=== PATIENT | male | born 1960 | race Caucasian/White ===

== ENCOUNTER 2017-12-17 07:01 | Observation (INO) | payer OTHER ==
[2017-12-17] VITALS (8 sets, daily range): BP systolic 109–162; BP diastolic 58–75; PULSE 60–82; RESP 16–18; TEMP 97.8–98.5; O2SAT 95–99
[~2017-12-17] VITALS: Ht 180.3 cm; Wt 109.0 kg
[~2017-12-17 07:01] MED LIST: CENTCHW4 CHEW; GEMF600 PO; LISI20TA PO; METF1000 PO; PIOG30TA4 PO; VITA500T83 PO
[2017-12-17] MEDS ORDERED: SODIUM CHLORIDE 0.9% FLUSH 10 ML FLUSH IVF PRN (07:30)
[2017-12-17] MEDS ORDERED: ASPIRIN 81 MG CHEW TAB PO ONE (07:30)
--- NOTE | 2017-12-17 07:32 | PD ---
HPI Chief Complaint: Chest Pain Time Seen by Provider: 07:20 Travel History International Travel<30 days: No Contact w/Intl Traveler<30days: No Traveled to known affect area: No History of Present Illness HPI This is a 57-year-old male with a history of diabetes, hyperlipidemia and hypertension who presents to the emergency department with chest discomfort described as a pressure and heaviness on his chest radiating between the shoulder blades into his left arm, intermittent, going on for the past 3 days worse this morning. He denies any associated nausea, diaphoresis or shortness of breath. He has never had pain like this before. His last stress test was in 2012 and was normal. He has a brother who had a stent placed and is in his early 60s. He is a recovering alcoholic and prefers to avoid IV opiates. PFSH Past Medical History Blood Disorders: No Heart Rhythm Problems: No Cancer: No Cardiac Catheterization: No Cardiovascular Problems: Yes High Cholesterol: Yes Congestive Heart Failure: No Diabetes: Yes Patient Takes Glucophage: Yes Diminished Hearing: No Endocrine: Yes Genitourinary: No Hypertension: Yes Immune Disorder: No Musculoskeletal: No Neurologic: No Psychiatric: No Respiratory: No Influenza Vaccination: Yes Past Surgical History Coronary Artery Bypass Graft: No Social History Alcohol Use: No (HX OF ALCOHOLISM) Tobacco Use: Yes (1/2 ppd) Substance Use: No Allergies-Medications (Allergen,Severity, Reaction): Coded Allergies: lorazepam (Unverified Allergy, Intermediate, Edema, 12/17/17) FACIAL SWELLING Reported Meds & Prescriptions Reported Meds & Active Scripts Active Lisinopril-Hctz 20-12.5 Mg Tab 2 Tab PO DAILY Pioglitazone (Pioglitazone HCl) 30 Mg Tab 30 Mg PO DAILY Lopid (Gemfibrozil) 600 Mg Tab 600 Mg PO BIDAC Take 30 minutes prior to breakfast and dinner Metformin (Metformin HCl) 1,000 Mg Tab 1,000 Mg PO BIDPC With meals Reported Centrum (Multiple Vitamins W/ Minerals) 1 Chew 1 Tab CHEW DAILY Vitamin C ER (Ascorbic Acid) 500 Mg Leah 500 Mg PO DAILY Review of Systems Except as stated in HPI: all other systems reviewed are Neg Physical Exam Narrative GENERAL:Well appearing, no acute distress SKIN: Focused skin assessment warm and dry. HEAD: Atraumatic. Normocephalic. EYES: Pupils equal and round. No injection or drainage. ENT: Moist mucous membranes NECK: Trachea midline. CARDIOVASCULAR: Regular rate and rhythm. No murmur appreciated. RESPIRATORY: Clear to auscultation. Breath sounds equal bilaterally. GASTROINTESTINAL: Abdomen soft, non-tender, nondistended. MUSCULOSKELETAL: No obvious deformities. NEUROLOGICAL: Awake and alert. No obvious cranial nerve deficits. Moving all extremities. PSYCHIATRIC: Appropriate mood and affect; insight and judgment normal. Data Data Last Documented VS Vital Signs Date Time Temp Pulse Resp B/P (MAP) Pulse Ox O2 Delivery O2 Flow Rate FiO2 12/17/17 07:50 16 12/17/17 07:38 82 145/64 (91) 12/17/17 07:29 98 Room Air 12/17/17 07:17 97.9 Orders Orders Electrocardiogram (12/17/17 07:30) Complete Blood Count With Diff (12/17/17 07:30) Comprehensive Metabolic Panel (12/17/17 07:30) Troponin I (12/17/17 07:30) Ecg Monitoring (12/17/17 07:30) Bilateral Bp Monitoring (12/17/17 07:30) Iv Access Insert/Monitor (12/17/17 07:30) Oximetry (12/17/17 07:30) Oxygen Administration (12/17/17 07:30) Aspirin Chew (Aspirin Chew) (12/17/17 07:30) Sodium Chloride 0.9% Flush (Ns Flush) (12/17/17 07:30) Nitroglycerin Sl (Nitrostat Sl) (12/17/17 07:30) Chest, Pa & Lat (12/17/17 07:30) Acetaminophen (Tylenol) (12/17/17 08:15) Admit Order (Ed Use Only) (12/17/17 08:36) Labs Laboratory Tests Test 12/17/17 07:34 White Blood Count 5.7 TH/MM3 Red Blood Count 4.65 MIL/MM3 Hemoglobin 14.6 GM/DL Hematocrit 43.3 % Mean Corpuscular Volume 93.0 FL Mean Corpuscular Hemoglobin 31.4 PG Mean Corpuscular Hemoglobin Concent 33.7 % Red Cell Distribution Width 13.7 % Platelet Count 236 TH/MM3 Mean Platelet Volume 9.6 FL Neutrophils (%) (Auto) 61.9 % Lymphocytes (%) (Auto) 25.5 % Monocytes (%) (Auto) 8.8 % Eosinophils (%) (Auto) 3.1 % Basophils (%) (Auto) 0.7 % Neutrophils # (Auto) 3.5 TH/MM3 Lymphocytes # (Auto) 1.5 TH/MM3 Monocytes # (Auto) 0.5 TH/MM3 Eosinophils # (Auto) 0.2 TH/MM3 Basophils # (Auto) 0.0 TH/MM3 CBC Comment DIFF FINAL Differential Comment Blood Urea Nitrogen 27 MG/DL Creatinine 1.08 MG/DL Random Glucose 191 MG/DL Total Protein 7.3 GM/DL Albumin 3.4 GM/DL Calcium Level 8.9 MG/DL Alkaline Phosphatase 85 U/L Aspartate Amino Transf (AST/SGOT) 19 U/L Alanine Aminotransferase (ALT/SGPT) 22 U/L Total Bilirubin 0.4 MG/DL Sodium Level 140 MEQ/L Potassium Level 4.1 MEQ/L Chloride Level 105 MEQ/L Carbon Dioxide Level 25.7 MEQ/L Anion Gap 9 MEQ/L Estimat Glomerular Filtration Rate 71 ML/MIN Troponin I LESS THAN 0.02 NG/ML MDM Medical Decision Making Medical Screen Exam Complete: Yes Emergency Medical Condition: Yes Medical Record Reviewed: Yes (Stress test in June 2013 was reassuring) Interpretation(s) EKG: Normal sinus rhythm with no ST changes No leukocytosis Troponin is normal Last 24 hours Impressions Chest X-Ray 12/17/17 0730 Signed Impressions: Service Date/Time: Sunday, December 17, 2017 07:57 - CONCLUSION: 1. No acute cardiopulmonary disease. Austin Pelayo MD Differential Diagnosis acute coronary syndrome, pneumothorax, pneumonia, pleural effusion Narrative Course This is a 57-year-old male who presents to the emergency department with chest discomfort described as a heaviness. EKG is nonischemic. He is placed on a monitor and IV was established. Labs were obtained which were reassuring. Aspirin was administered. Chest x-ray is reassuring. Patient has clinical history concerning for acute coronary syndrome. He will be placed in observation in the chest pain center. I do not suspect aortic dissection or pulmonary embolism given his description of symptoms, well appearance and normal vital signs. Diagnosis Primary Impression: Chest pain Qualified Codes: R07.9 - Chest pain, unspecified Admitting Information Admitting Physician Requests: Marichuy Knox MD December 17, 2017 07:32
[2017-12-17] MEDS: NITROGLYCERIN 0.4 MG SL 25 TABS/BTL SL SCH ×3 (07:34→07:50)
[2017-12-17 07:47] LABS: AUTOMATED NEUTROPHIL # 3.5 TH/MM3 (1.8-7.7); BASOPHIL % 0.7 % (0.0-2.0); EOSINOPHIL # 0.2 TH/MM3 (0-0.4); EOSINOPHIL % 3.1 % (0.0-4.0); HEMATOCRIT 43.3 % (39.0-51.0); HEMOGLOBIN 14.6 GM/DL (13.0-17.0); LYMPH % 25.5 % (9.0-44.0); LYMPHOCYTE # 1.5 TH/MM3 (1.0-4.8); MEAN CORPUSCULAR HEMOGLOBIN 31.4 PG (27.0-34.0); MEAN CORPUSCULAR HGB CONC 33.7 % (32.0-36.0); MEAN PLATELET VOLUME 9.6 FL (7.0-11.0); MONO % 8.8 % (0.0-8.0); MONOCYTE # 0.5 TH/MM3 (0-0.9); NEUT % 61.9 % (16.0-70.0); PLATELET COUNT 236 TH/MM3 (150-450); RED BLOOD COUNT 4.65 MIL/MM3 (4.50-5.90); RED CELL DISTRIBUTION WIDTH 13.7 % (11.6-17.2); WHITE BLOOD COUNT 5.7 TH/MM3 (4.0-11.0)
--- NOTE | 2017-12-17 08:12 | RADRPT ---
EXAM DATE/TIME: 12/17/2017 07:57 [facility] COMPARISON: No previous studies available for comparison. INDICATIONS : Patient states chest pressure. MEDICAL HISTORY : Diabetes mellitus type II. Hypertension SURGICAL HISTORY : None. ENCOUNTER: Initial ACUITY: 2 days PAIN SCORE: 5/10 LOCATION: Bilateral chest FINDINGS: PA and lateral views of the chest demonstrate the lungs to be symmetrically aerated without evidence of mass, infiltrate or effusion. The cardiomediastinal contours are unremarkable. Osseous structure s are intact. CONCLUSION: 1. No acute cardiopulmonary disease. Austin Pelayo MD on December 17, 2017 at 8:10 Board Certified Radiologist. This report was verified electronically.
[2017-12-17 08:14] LABS: ALBUMIN 3.4 GM/DL (3.4-5.0); ALKALINE PHOSPHATASE 85 U/L (45-117); ALT (GPT) 22 U/L (12-78); AST (GOT) 19 U/L (15-37); BICARBONATE 25.7 MEQ/L (21.0-32.0); BLOOD UREA NITROGEN 27 MG/DL (7-18); CALCIUM 8.9 MG/DL (8.5-10.1); CHLORIDE 105 MEQ/L (98-107); CREATININE 1.08 MG/DL (0.60-1.30); GLOMERULAR FILTRATION RATE 71 ML/MIN (>89); GLUCOSE,RANDOM 191 MG/DL (74-106); SODIUM (NA) 140 MEQ/L (136-145); TOTAL BILIRUBIN ADULT 0.4 MG/DL (0.2-1.0); TOTAL PROTEIN 7.3 GM/DL (6.4-8.2); TROPONIN I LESS THAN 0.02 NG/ML (0.02-0.05)
[2017-12-17] MEDS ORDERED: ACETAMINOPHEN 500 MG CPLT PO ONE (08:15)
[2017-12-17] MEDS ORDERED: ONDANSETRON ODT 4 MG TAB PO PRN (09:30)
[2017-12-17] MEDS ORDERED: ACETAMINOPHEN 500 MG CPLT PO PRN (09:30)
[2017-12-17] MEDS ORDERED: ACETAMINOPHEN/HYDROcodone 325 MG/7.5 MG TAB PO PRN (09:30)
--- NOTE | 2017-12-17 09:44 | HHI.HP ---
HPI Primary Care Physician Astrid Louis MD Chief Complaint Chest pain History of Present Illness This is a 57-year-old male with history of diabetes, hypertension, hyperlipidemia, tobacco abuse, and family history of CAD that presents to ED via private vehicle with complaint of 4 days of chest discomfort. States the first 2 days was a central chest pressure that was intermittent lasting 5 or 6 hours at a time. Found nothing to worsen or improve the symptoms. Had no associated shortness breath, nausea, or diaphoresis. Symptoms did not radiate from the center of his chest. However his symptoms change the last 2 days. States that the discomfort is been constantly there over the last 2 days however the intensity waxes and wanes. Found nothing initially to worsen or improve it but states he was given sublingual nitroglycerin in the emergency department which improved symptoms slightly. Currently discomfort is a 2-3 out of 10. Still denies associated shortness of breath, nausea, or diaphoresis. Had an episode of discomfort in 2012 and was seen in the hospital and had a nonischemic stress test but states the symptoms were different than today. Patient continues to smoke cigarettes at about one half pack of cigarettes a day. Denies recent illness. Denies fevers or chills. Review of Systems General: Patient denies fevers, chills, and recent travel. HEENT: Patient denies headache, sore throat, difficulty swallowing. Cardiovascular: Has the chest discomfort as mentioned above. Denies sensation of heart beating rapidly or irregularly. No syncope. Denies diaphoresis. Respiratory: Denies shortness of breath or inspirational chest discomfort. Denies coughing wheezing or hemoptysis. GI: Patient denies nausea, vomiting, diarrhea, abdominal pain, bloody stools. Musculoskeletal: Patient denies joint pain or edema. Denies calf pain or edema. Neurovascular: Patient denies numbness, tingling, weakness in extremities. Denies headache. Endocrine: Denies polyuria and polydipsia. Hematologic: Denies easy bruising. Skin: Denies rash or itching. Past Family Social History Allergies: Coded Allergies: lorazepam (Unverified Allergy, Intermediate, Edema, 12/17/17) FACIAL SWELLING Past Medical History Hypertension, diabetes, hyperlipidemia, tobacco abuse. Denies knowledge of CAD. Past Surgical History Left hand surgery after fracturing it. Reported Medications Reported Meds & Active Scripts Active Lisinopril-Hctz 20-12.5 Mg Tab 2 Tab PO DAILY Pioglitazone (Pioglitazone HCl) 30 Mg Tab 30 Mg PO DAILY Lopid (Gemfibrozil) 600 Mg Tab 600 Mg PO BIDAC Take 30 minutes prior to breakfast and dinner Metformin (Metformin HCl) 1,000 Mg Tab 1,000 Mg PO BIDPC With meals Reported Centrum (Multiple Vitamins W/ Minerals) 1 Chew 1 Tab CHEW DAILY Vitamin C ER (Ascorbic Acid) 500 Mg Leah 500 Mg PO DAILY Active Ordered Medications Current Medications Medications (Trade) Dose Ordered Sig/Mariaelena Route Start Time Stop Time Status Last Admin (NS Flush) 2 ml UNSCH PRN IVF 12/17/17 07:30 (Tylenol) 500 mg Q4H PRN PO 12/17/17 09:30 ([place] 7.5-325 Mg) 1 tab Q4H PRN PO 12/17/17 09:30 (Zofran Odt) 4 mg Q6H PRN PO 12/17/17 09:30 (Protonix) 40 mg DAILY PO 12/17/17 10:00 (Aspirin) 325 mg DAILY PO 12/18/17 09:00 Family History His brother had a stent in his late 50s. He states his father in his 30s but really does not know the cause. States that he was only 14 months old when this occurred. Social History Has been smoking one half pack of cigarettes daily for 8 years but prior that he smoked between three-quarter pack to 1 pack a day for 30 years. He states he has been sober from alcohol and illicit drugs for 9 years. Physical Exam Vital Signs Vital Signs Date Time Temp Pulse Resp B/P (MAP) Pulse Ox O2 Delivery O2 Flow Rate FiO2 12/17/17 09:00 66 18 145/64 (91) 99 Room Air 12/17/17 07:50 16 12/17/17 07:38 82 145/64 (91) 12/17/17 07:29 73 18 162/75 (104) 98 Room Air 12/17/17 07:17 97.9 70 16 130/60 (83) 96 Physical Exam GENERAL: This is a well-nourished, well-developed patient, in no apparent distress. Patient speaks in clear complete sentences. Patient is pleasant. HEENT: Head is atraumatic and normocephalic. Neck is supple without lymphadenopathy and trachea is midline. No JVD or carotid bruits. CARDIOVASCULAR: Regular rate and rhythm without murmurs, gallops, or rubs. RESPIRATORY: Clear to auscultation. Breath sounds equal bilaterally. No wheezes , rales, or rhonchi. Chest wall is nontender. No use of accessory muscles. GASTROINTESTINAL: Abdomen is nontender, nondistended. Abdomen soft. No obvious pulsatile mass or bruit. No CVA tenderness. Strong femoral pulses bilaterally. Normal bowel sounds in all quadrants. MUSCULOSKELETAL: Patient is moving upper and lower extremities freely. No calf tenderness or edema, no Homans sign. Strong pulses in upper and lower extremities. NEUROLOGICAL: Patient is alert and oriented. Cranial nerves 2-12 are grossly intact. No focal deficits and speech is clear. SKIN: No rash and turgor is normal. Laboratory Laboratory Tests Test 12/17/17 07:34 White Blood Count 5.7 Red Blood Count 4.65 Hemoglobin 14.6 Hematocrit 43.3 Mean Corpuscular Volume 93.0 Mean Corpuscular Hemoglobin 31.4 Mean Corpuscular Hemoglobin Concent 33.7 Red Cell Distribution Width 13.7 Platelet Count 236 Mean Platelet Volume 9.6 Neutrophils (%) (Auto) 61.9 Lymphocytes (%) (Auto) 25.5 Monocytes (%) (Auto) 8.8 Eosinophils (%) (Auto) 3.1 Basophils (%) (Auto) 0.7 Neutrophils # (Auto) 3.5 Lymphocytes # (Auto) 1.5 Monocytes # (Auto) 0.5 Eosinophils # (Auto) 0.2 Basophils # (Auto) 0.0 CBC Comment DIFF FINAL Differential Comment Blood Urea Nitrogen 27 Creatinine 1.08 Random Glucose 191 Total Protein 7.3 Albumin 3.4 Calcium Level 8.9 Alkaline Phosphatase 85 Aspartate Amino Transf (AST/SGOT) 19 Alanine Aminotransferase (ALT/SGPT) 22 Total Bilirubin 0.4 Sodium Level 140 Potassium Level 4.1 Chloride Level 105 Carbon Dioxide Level 25.7 Anion Gap 9 Estimat Glomerular Filtration Rate 71 Troponin I LESS THAN 0.02 Result Diagram: 12/17/17 0734 12/17/17 0734 Imaging Last 48 hours Impressions Chest X-Ray 12/17/17 8782 Signed Impressions: Service Date/Time: Sunday, December 17, 2017 07:57 - CONCLUSION: 1. No acute cardiopulmonary disease. Austin Pelayo MD Course Initial EKG is sinus rhythm without significant ST segment depressions or elevations. Caprini VTE Risk Assessment Caprini VTE Risk Assessment: No/Low Risk (score <= 1) Caprini Risk Assessment Model Point Value = 1 Point Value = 2 Point Value = 3 Point Value = 5 Age 41-60 Minor surgery BMI > 25 kg/m2 Swollen legs Varicose veins or History of unexplained or recurrent spontaneous Oral contraceptives or hormone replacement Sepsis (< 1 month) Serious lung disease, including pneumonia (< 1 month) Abnormal pulmonary function Acute myocardial infarction Congestive heart failure (< 1 month) History of inflammatory bowel disease Medical patient at bed rest Age 61-74 Arthroscopic surgery Major open surgery (> 45 min) Laparoscopic surgery (> 45 min) Malignancy Confined to bed (> 72 hours) Immobilizing plaster cast Central venous access Age >= 75 History of VTE Family history of VTE Factor V Leiden Prothrombin [id number] Lupus anticoagulant Anticardiolipin antibodies Elevated serum homocysteine Heparin-induced thrombocytopenia Other congenital or acquired thrombophilia Stroke (< 1 month) Elective arthroplasty Hip, pelvis, or leg fracture Acute spinal cord injury (< 1 month) Prophylaxis Regimen Total Risk Factor Score Risk Level Prophylaxis Regimen 0-1 Low Early ambulation 2 Moderate Order ONE of the following: *Sequential Compression Device (SCD) *Heparin 5000 units SQ BID 3-4 Higher Order ONE of the following medications: *Heparin 5000 units SQ TID *Enoxaparin/Lovenox 40 mg SQ daily (WT < 150 kg, CrCl > 30 mL/min) *Enoxaparin/Lovenox 30 mg SQ daily (WT < 150 kg, CrCl > 10-29 mL/min) *Enoxaparin/Lovenox 30 mg SQ BID (WT < 150 kg, CrCl > 30 mL/min) AND/OR *Sequential Compression Device (SCD) 5 or more Highest Order ONE of the following medications: *Heparin 5000 units SQ TID (Preferred with Epidurals) *Enoxaparin/Lovenox 40 mg SQ daily (WT < 150 kg, CrCl > 30 mL/min) *Enoxaparin/Lovenox 30 mg SQ daily (WT < 150 kg, CrCl > 10-29 mL/min) *Enoxaparin/Lovenox 30 mg SQ BID (WT < 150 kg, CrCl > 30 mL/min) AND *Sequential Compression Device (SCD) Assessment and Plan Assessment and Plan * Chest pain: Patient has had constant discomfort now for 2 days. First troponin and EKG are normal. Patient was seen by Dr. Conrad of cardiology in the chest pain center and will undergo a Lexiscan at this time. Further plan pending the results of stress test. At discharge patient should resume his medications, follow diabetic diet, and further discuss statin therapy with his PCP. Follow-up with PCP. He should return to ED for interval issues. * Diabetes: Continues medications at discharge. Will be on sliding scale insulin coverage in the interim. He should follow diabetic diet. * Hypertension.: Continue medication. * Tobacco abuse: Patient has been counseled on importance of smoking cessation. * Hyperlipidemia: Continues medication. He should discuss statin therapy with his PCP as well. Patient is stable at this time. He is agreeable to this plan. Phillip Billy December 17, 2017 09:44
--- NOTE | 2017-12-17 09:45 | PD.CARD.PN ---
Subjective Subjective Remarks The patient was presented by the physician tower switch operator, the documentation reviewed and discussed. The patient was then seen and examined personally with the PA. History is as recorded. PE unchanged with clear lungs and normal heart exam. Extremities, several small abrasions right lower leg and 1+ pitting Objective Medications Current Medications Medications (Trade) Dose Ordered Sig/Mariaelena Route Start Time Stop Time Status Last Admin (NS Flush) 2 ml UNSCH PRN IVF 12/17/17 07:30 (Tylenol) 500 mg Q4H PRN PO 12/17/17 09:30 ([place] 7.5-325 Mg) 1 tab Q4H PRN PO 12/17/17 09:30 (Zofran Odt) 4 mg Q6H PRN PO 12/17/17 09:30 (Protonix) 40 mg DAILY PO 12/17/17 10:00 (Aspirin) 325 mg DAILY PO 12/18/17 09:00 Vital Signs / I&O Vital Signs Date Time Temp Pulse Resp B/P (MAP) Pulse Ox O2 Delivery O2 Flow Rate FiO2 12/17/17 09:00 66 18 145/64 (91) 99 Room Air 12/17/17 07:50 16 12/17/17 07:38 82 145/64 (91) 12/17/17 07:29 73 18 162/75 (104) 98 Room Air 12/17/17 07:17 97.9 70 16 130/60 (83) 96 Physical Exam As recorded Small abrasions right lower leg and 1+ pitting Laboratory Laboratory Tests Test 12/17/17 07:34 White Blood Count 5.7 TH/MM3 Red Blood Count 4.65 MIL/MM3 Hemoglobin 14.6 GM/DL Hematocrit 43.3 % Mean Corpuscular Volume 93.0 FL Mean Corpuscular Hemoglobin 31.4 PG Mean Corpuscular Hemoglobin Concent 33.7 % Red Cell Distribution Width 13.7 % Platelet Count 236 TH/MM3 Mean Platelet Volume 9.6 FL Neutrophils (%) (Auto) 61.9 % Lymphocytes (%) (Auto) 25.5 % Monocytes (%) (Auto) 8.8 % Eosinophils (%) (Auto) 3.1 % Basophils (%) (Auto) 0.7 % Neutrophils # (Auto) 3.5 TH/MM3 Lymphocytes # (Auto) 1.5 TH/MM3 Monocytes # (Auto) 0.5 TH/MM3 Eosinophils # (Auto) 0.2 TH/MM3 Basophils # (Auto) 0.0 TH/MM3 CBC Comment DIFF FINAL Differential Comment Blood Urea Nitrogen 27 MG/DL Creatinine 1.08 MG/DL Random Glucose 191 MG/DL Total Protein 7.3 GM/DL Albumin 3.4 GM/DL Calcium Level 8.9 MG/DL Alkaline Phosphatase 85 U/L Aspartate Amino Transf (AST/SGOT) 19 U/L Alanine Aminotransferase (ALT/SGPT) 22 U/L Total Bilirubin 0.4 MG/DL Sodium Level 140 MEQ/L Potassium Level 4.1 MEQ/L Chloride Level 105 MEQ/L Carbon Dioxide Level 25.7 MEQ/L Anion Gap 9 MEQ/L Estimat Glomerular Filtration Rate 71 ML/MIN Troponin I LESS THAN 0.02 NG/ML Imaging Last 24 hours Impressions Chest X-Ray 12/17/17 0730 Signed Impressions: Service Date/Time: Sunday, December 17, 2017 07:57 - CONCLUSION: 1. No acute cardiopulmonary disease. Austin Pelayo MD Assessment and Plan Assessment and Plan He had an ETT several years ago which showed ST depression with rapidly upsloping segments. He also has sig risk factors. At this time we will obtain a nuclear stress test. Discussed Condition With PA and patient Frederick Conrad MD December 17, 2017 09:45
[2017-12-17] MEDS ORDERED: PANTOPRAZOLE SOD 40 MG DELAYED RELEASE TAB PO SCH (10:00)
[2017-12-17] MEDS ORDERED: cloNIDine HCL 0.1 MG TAB PO PRN (10:00)
[2017-12-17] MEDS ORDERED: NON-FORMULARY DRUG (Lisinopril-Hctz 2 TAB) PO SCH (10:00)
[2017-12-17] MEDS ORDERED: HYDROCHLOROTHIAZIDE 25 MG TAB PO SCH (10:09)
[2017-12-17] MEDS ORDERED: LISINOPRIL 20 MG TAB PO SCH (10:09)
--- NOTE | 2017-12-17 11:53 | EKG ---
Date Performed: 12/17/2017 Time Performed: 07:24:44 PTAGE: 57 years EKG: Sinus rhythm NORMAL ECG PREVIOUS TRACING : 07/18/2013 22.09 No significant change from previous tracing noted. DOCTOR: Frankie Almaraz Interpretating Date/Time 12/17/2017 11:53:12
[2017-12-17] MEDS ORDERED: REGADENOSON INJ 0.4 MG/5 ML SYR ONE (13:22)
--- NOTE | 2017-12-17 15:19 | RADRPT ---
EXAM DATE/TIME: 12/17/2017 13:08 [facility] COMPARISON: No previous studies available for comparison. INDICATIONS : Angina. DOSE: 35.0 mCi Tc99m Myoview at stress. 11.0 mCi Tc99m Myoview at rest. 0.4 mg Lexiscan STRESS SYMPTOMS: Shortness of breath. EJECTION FRACTION: 64% MEDICAL HISTORY : Hypertension. Diabetes mellitus type 1. SURGICAL HISTORY : LEFT HAND SURGERY ENCOUNTER: Initial ACUITY: 3 days PAIN SCALE: 10/10 LOCATION: Bilateral chest TECHNIQUE: The patient underwent pharmacologic stress with infusion of prescribed dose. Continuous ECG tracing was monitored during stress. Gated SPECT imaging was performed after stress and conventional SPECT i maging was performed at rest. The examination was performed on a SPECT/CT scanner, both attenuation and non-corrected datasets were reviewed. FINDINGS: DISTRIBUTION: The maximum perfused segment at stress is in the inferior wall. PERFUSION STUDY: The pattern of perfusion at stress shows fixed diminished perfusion to the apex. No reversibility GATED STUDY: There is intact wall motion and thickening without hypokinetic or dyskinetic segments. CONCLUSION: 1. Fixed diminished perfusion to the apex characteristic of apical thinning or old apical infarct. 2. No scintigraphic findings of ischemia. 3. Adequate wall motion throughout with an estimated ejection fraction of 64%. RISK CATEGORY: Low (<1% Annual Mortality Rate) Twan Hall MD on December 17, 2017 at 15:16 Board Certified Radiologist. This report was verified electronically.
--- NOTE | 2017-12-17 15:56 | HHI.DCPOC ---
Discharge Care Plan Diagnosis: (1) Chest pain (2) DM (diabetes mellitus) (3) Tobacco abuse (4) Hyperlipidemia (5) Hypertension Goals to Promote Your Health DISCUSS TAKING STATIN MEDICATIONS WITH YOUR PRIMARY CARE PHYSICIAN. THERE MIGHT BE ONE THAT YOU CAN TOLERATE AND IT WOULD BE VERY BENEFICIAL FOR YOU IF YOU CAN GO BACK ON STATIN MEDICATIONS. * To prevent worsening of your condition and complications * To maintain your health at the optimal level Directions to Meet Your Goals Take your medications as prescribed Follow your dietary instruction Follow activity as directed Keep your appointments as scheduled Take your immunizations and boosters as scheduled If your symptoms worsen call your PCP, if no PCP go to Urgent Care Center or Emergency Room Smoking is Dangerous to Your Health. Avoid second hand smoke Call the 24-hour hour crisis hotline for domestic abuse at Phillip Billy December 17, 2017 15:56
[2017-12-17] MEDS ORDERED: GEMFIBROZIL 600 MG TAB PO SCH (16:00)
[2017-12-18] MEDS ORDERED: ASPIRIN 325 MG TAB PO SCH (09:00)
--- NOTE | 2017-12-18 09:30 | TR ---
Date Performed: 12/17/2017 Time Performed: 13:33:43 DOCTOR: Anabelle Ramesh DRUG LIST: CLINICAL HISTORY: REASON FOR TEST: REASON FOR ENDING: OBSERVATION: CONCLUSION: Lexiscan stress test was performed under standard four minute protocol. Radionuclid e was injected one minute prior to ending the test. No electrocardiographic abormalities were present to suggest ischemia. Nuclear imaging and interpretation are pending. COMMENTS: no ischemia
== END 2017-12-17 17:09 | disposition home or self-care (01) ==
LOC: NEPE 07:01 → NEDA 08:38 → NEPHCDU 11:12
PROVIDERS: ADMIT Internal Medicine Cardiovascular Disease; ATTEND Internal Medicine Cardiovascular Disease
DX: R07.89 Other chest pain (principal); I10 Essential (primary) hypertension; E78.5 Hyperlipidemia, unspecified; S80.811A Abrasion, right lower leg, initial encounter; E10.9 Type 1 diabetes mellitus without complications; R60.0 Localized edema; F10.21 Alcohol dependence, in remission; F17.210 Nicotine dependence, cigarettes, uncomplicated; Z79.899 Other long term (current) drug therapy; Z79.84 Long term (current) use of oral hypoglycemic drugs; Z82.49 Family history of ischemic heart disease and other diseases of the circulatory system; X58.XXXA Exposure to other specified factors, initial encounter
CPT/HCPCS: 71046; 78452; 80053; 84484; 85025; 93005; 93017; 99285; A9502; G0378; J2785